=== PATIENT | male | born 1970 | race Caucasian/White ===

== ENCOUNTER → 2017-11-17 | Outpatient (CLI) | payer BC ==
[2017-11-17 07:50] LABS: ALT 34 U/L (21-72); AST 30 U/L (17-59); Albumin 4.1 g/dL (3.5-5.0); Alkaline Phosphatase 42 U/L (38-126); Anion Gap 12 mmol/L; Blood Urea Nitrogen 16 mg/dL (9-20); Calcium 9.5 mg/dL (8.4-10.2); Carbon Dioxide 27 mmol/L (22-30); Chloride 104 mmol/L (98-107); Cholesterol 182 mg/dL (<200); Glucose 91 mg/dL (74-99); HDL Cholesterol 45 mg/dL (40-60); LDL Cholesterol,Calculated 103 mg/dL (0-99); Potassium 4.9 mmol/L (3.5-5.1); Sodium 143 mmol/L (137-145); Total Bilirubin 0.8 mg/dL (0.2-1.3); Total Protein 6.9 g/dL (6.3-8.2); Triglycerides 168 mg/dL (<150)
== END | disposition home or self-care (01) ==
LOC: LABWHC1 06:39
PROVIDERS: ATTEND Nurse Practitioner Family
DX: E78.2 Mixed hyperlipidemia (principal); I10 Essential (primary) hypertension; Z01.83 Encounter for blood typing
CPT/HCPCS: 36415; 80053; 80061; 86850; 86900; 86901

== ENCOUNTER → 2020-08-14 | Outpatient (CLI) | payer BC ==
--- NOTE | 2020-08-14 15:58 | NM ---
EXAMINATION TYPE: NM bone scan whole body DATE OF EXAM: 08/14/2020 COMPARISON: NONE HISTORY: 49-year-old male spondylosis without myelopathy or radiculopathy, collapsed vertebra not els ewhere classified lumbar region, initial encounter for fracture. M47.817, M48.56XA, M54.16 TECHNIQUE: Delayed whole-body scanning was performed following the injection of 21.0 mCi Tc 99m MDP. Images acquired 3 hours post injection. FINDINGS: There is some scattered degenerative tracer activity in both shoulders and sternoclavicular joints. Mildly increased activity at the L5 vertebral body level. IMPRESSION: 1. Mildly increased activity at the L5 vertebral body level. Recommend clinical correlation as to the levels of vertebral body height loss. This could reflect a subacute compression injury. If no compre ssion fracture at this level, these changes may reflect disc/endplate degenerative change. 2. Scattered degenerative tracer activity at the shoulders and sternoclavicular joints.
== END | disposition home or self-care (01) ==
LOC: RADNMMAIN 09:51
PROVIDERS: ATTEND Physical Medicine & Rehabilitation
DX: M19.019 Primary osteoarthritis, unspecified shoulder (principal); R93.7 Abnormal findings on diagnostic imaging of other parts of musculoskeletal system
CPT/HCPCS: 78306; A9503